=== PATIENT | male | born 1940 | race Caucasian/White ===

== ENCOUNTER → 2020-06-02 | Day surgery (SDC) | payer OTHER, BC | END | disposition home or self-care (01) | LOC: SURG 11:06 → EDBD 11:06 | PROVIDERS: ATTEND Anesthesiology | DX: M79.18 Myalgia, other site (principal); M47.816 Spondylosis without myelopathy or radiculopathy, lumbar region; C95.10 Chronic leukemia of unspecified cell type not having achieved remission; M19.90 Unspecified osteoarthritis, unspecified site; I10 Essential (primary) hypertension; Z79.899 Other long term (current) drug therapy | CPT/HCPCS: 99204; G0463 ==